=== PATIENT | female | born 1955 | race American Indian/Alaskan Native ===

== ENCOUNTER 2020-03-27 10:31 | Outpatient (CLI) | payer MEDICARE ==
--- NOTE | 2020-03-27 11:49 | Mammography Report ---
DEXA BONE DENSITY SCAN INDICATION / CLINICAL INFORMATION: ASYMPTOMATIC MENOPAUSAL STATE. 65 years Female COMPARISON: None available. LUMBAR SPINE, L2-L4: - Bone mineral density (BMD) = 1.238 g/cm2. - T-score = 0.5 - Z-score = 2.7 Change (%) since most recent prior (if available): None available. LEFT HIP, NECK : - Bone mineral density (BMD) = 1.045 g/cm2. - T-score = 0.7 - Z-score = 2.0 Change (%) since most recent prior (if available): None available. IMPRESSION: 1. WHO Classification: Normal bone density. Fracture Risk: Not Increased. BMD Reporting Guidelines (ISCD, 2015) BMD Reporting in Postmenopausal Women and in Men Age 50 and Older * T-scores are preferred. * The WHO densitometric classification is applicable. BMD Reporting in Females Prior to Menopause and in Males Younger Than Age 50 * Z-scores, not T-scores, are preferred. This is particularly important in children. * A Z-score of -2.0 or lower is defined as below the expected range for age, and a Z-score above -2. 0 is within the expected range for age. * Osteoporosis cannot be diagnosed in men under age 50 on the basis of BMD alone. * The WHO diagnostic criteria may be applied to women in the menopausal transition. http://www.iscd.org/official-positions/1272-iwhb-cvkxzxai-positions-adult/ Signer Name: Cruz Mariee MD Signed: 03/27/2020 11:45 AM Workstation Name: [id number]
== END 2020-03-27 10:32 | disposition home or self-care (01) ==
LOC: SPVWC 10:31
DX: Z13.820 Encounter for screening for osteoporosis (principal); Z78.0 Asymptomatic menopausal state
CPT/HCPCS: 77080